=== PATIENT | female | born 1950 | race Caucasian/White ===

== ENCOUNTER 2018-03-20 11:23 | Outpatient (CLI) | payer OTHER ==
[~2018-03-20 11:23] MED LIST: BEVESPI AEROS10.7 GM IH; COZAAR100 MG PO; NEURONTIN300 MG PO; ORPHENADRI30 MG/1 ML IM; RECTICARE30 GM TOP; SIMVASTATIN20 MG PO; SYMBICORT 16010.2 GM IH; VERAPAMIL ER240 MG PO; [UNRECOGNIZED DRUG - OTHER] PO; [UNRECOGNIZED DRUG - OTHER] PO
[2018-03-20] MEDS ORDERED: PLAVIX75 MG PO (14:59)
[2018-03-20] MEDS ORDERED: TRADJENTA PO (15:00)
[2018-03-20] MEDS ORDERED: SINGULAIR10 MG PO (15:00)
== END 2018-03-20 11:24 | disposition home or self-care (01) ==
LOC: EKG 11:23
DX: I10 Essential (primary) hypertension (principal); R00.0 Tachycardia, unspecified

== ENCOUNTER → 2018-05-18 06:38 | Outpatient (CLI) | payer OTHER ==
[~2018-05-18 06:38] MED LIST changes: +PLAVIX75 MG PO; +SINGULAIR10 MG PO; +TRADJENTA PO
== END | disposition home or self-care (01) ==
LOC: LAB 06:38
DX: N39.0 Urinary tract infection, site not specified (principal); D68.8 Other specified coagulation defects

== ENCOUNTER 2018-10-14 10:45 | Inpatient (IN) | payer OTHER ==
[~2018-10-14] VITALS: Ht 162.6 cm; Wt 91.2 kg
[~2018-10-14 10:45] MED LIST changes: +CELEXA10 MG PO; +ZOCOR20 MG PO
[2018-10-26] MEDS ORDERED: INTEGRA F CAPS1 EACH PO (09:19)
[2018-10-26] MEDS ORDERED: LACTULOSE10 GM/152 PO (09:20)
== END 2018-10-26 10:16 | disposition home or self-care (01) | DRG 329 ==
LOC: EDSTATUS 10:45 → ADM 10:45 → SURG 10-19 07:18 → O/R 10-19 07:18 → SURH 10-19 10:45 → SURG 10-19 19:57
PROVIDERS: ADMIT Surgery
PROC: 0DTN4ZZ Resection of Sigmoid Colon, Percutaneous Endoscopic Approach (ICD-10-PCS; principal; 2018-10-19 16:45)
PROC: 30233N1 Transfusion of Nonautologous Red Blood Cells into Peripheral Vein, Percutaneous Approach (ICD-10-PCS; 2018-10-22)
PROC: 4A12X4Z Monitoring of Cardiac Electrical Activity, External Approach (ICD-10-PCS; 2018-10-22)
DX: K57.32 Diverticulitis of large intestine without perforation or abscess without bleeding (principal); K66.1 Hemoperitoneum; D62 Acute posthemorrhagic anemia; N73.6 Female pelvic peritoneal adhesions (postinfective); E66.8 Other obesity; E78.49 Other hyperlipidemia; I10 Essential (primary) hypertension; N81.6 Rectocele

== ENCOUNTER 2018-10-14 14:51 | Outpatient (CLI) | payer OTHER | END 2018-10-14 14:58 | disposition home or self-care (01) | LOC: LAB 14:51 | DX: N03.9 Chronic nephritic syndrome with unspecified morphologic changes (principal); E11.9 Type 2 diabetes mellitus without complications; B96.89 Other specified bacterial agents as the cause of diseases classified elsewhere ==